=== PATIENT | male | born 1985 | race Caucasian/White ===

== ENCOUNTER 2020-03-15 14:23 | Emergency (ER) | payer OTHER, SELFPAY ==
[2020-03-15 15:02] VITALS: BP 160/104; PULSE 79; RESP 14; TEMP 37.3; O2SAT 99; BMI 27.1
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
[2020-03-15 17:25] VITALS: BP 161/100; PULSE 76; RESP 14; O2SAT 98
== END 2020-03-15 17:25 | disposition home or self-care (01) ==
PROVIDERS: Emergency Provider Physician Assistant; PCP Family Medicine
DX: S13.4XXA Sprain of ligaments of cervical spine, initial encounter (principal); V89.2XXA Person injured in unspecified motor-vehicle accident, traffic, initial encounter
CPT/HCPCS: 12345; 70450; 72125; 99281; 99282

== ENCOUNTER 2021-05-21 08:53 | Outpatient (CLI) | payer OTHER, SELFPAY ==
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
== END 2021-05-21 08:54 | disposition home or self-care (01) ==
LOC: RAD 08:55
PROVIDERS: PCP Family Medicine; Visit Provider Clinical Nurse Specialist Adult Health
DX: M25.572 Pain in left ankle and joints of left foot (principal); M79.89 Other specified soft tissue disorders
CPT/HCPCS: 73610

== ENCOUNTER → 2025-01-21 08:45 | Outpatient (BNVA) | payer OTHER, SELFPAY | PROVIDERS: PCP Family Medicine; Visit Provider Family Medicine | DX: Z00.00 Encounter for general adult medical examination without abnormal findings (principal); Z51.81 Encounter for therapeutic drug level monitoring; I10 Essential (primary) hypertension; M79.671 Pain in right foot | CPT/HCPCS: 80053; 84550; 85025 ==